=== PATIENT | male | born 1975 | race Hispanic/Latino ===

== ENCOUNTER 2018-10-23 13:27 | Emergency (ER) | payer OTHER ==
[2018-10-23 14:09] LABS: #Eosinphils 0.2 thou/uL (0.0-0.7); #Lymphocytes 2.5 thou/uL (1.20-3.40); #Monocytes 0.6 thou/uL (0.11-0.59); #Neutrophils 4.6 thou/uL (1.40-6.50); %Basophils 0.4 % (0.0-1.0); %Eosinophils 2.3 % (0.0-10.0); %Lymphocytes 31.7 % (21.0-51.0); %Monocytes 7.6 % (0.0-10.0); Hemoglobin 11.3 g/dL (14.0-18.0); Mean Corpuscular HGB CONC 33.5 g/dL (32.0-36.0); Mean Corpuscular Hemoglobin 29.3 pg (27.0-31.0); Mean Corpuscular Volume 87.4 fL (78.0-98.0); Mean Platelet Volume 6.9 fL (7.4-10.4); Platelet Count 290 thou/uL (130-400); RBC Distribution Width 12.2 % (11.5-14.5); Red Blood Cell (RBC) Count 3.86 mill/uL (4.70-6.10)
[2018-10-23 14:31] LABS: ALT (SGPT) 11 U/L (8-55); AST (SGOT) 14 U/L (5-34); Albumin 3.8 g/dL (3.5-5.0); Alkaline Phosphatase 113 U/L (40-150); Anion Gap 12 mmol/L (10-20); BUN (Urea Nitrogen) 28 mg/dL (8.9-20.6); Bilirubin, Total 0.2 mg/dL (0.2-1.2); CK (CPK) 105 U/L (30-200); Calc. Creatinine Clearance 0 mL/min (70-130); Calcium 9.1 mg/dL (7.8-10.44); Carbon Dioxide 23 mmol/L (22-29); Chloride 106 mmol/L (98-107); Estimated GFR-MDRD 45; Globulin 2.8 g/dL (2.4-3.5); Glucose 189 mg/dL (70-105); Potassium 5.3 mmol/L (3.5-5.1); Protein, Total 6.6 g/dL (6.0-8.3); Sodium 136 mmol/L (136-145)
== END 2018-10-23 15:03 | disposition home or self-care (01) ==
LOC: ERS 13:27
DX: E87.5 Hyperkalemia (principal); N17.9 Acute kidney failure, unspecified; E11.9 Type 2 diabetes mellitus without complications; I10 Essential (primary) hypertension; Z79.899 Other long term (current) drug therapy; Z79.4 Long term (current) use of insulin
CPT/HCPCS: 36415; 80053; 82550; 84484; 85025; 93005

== ENCOUNTER 2023-03-14 18:13 | Inpatient (IN) | payer OTHER ==
[2023-03-14] MEDS ORDERED: Acetaminophen 650 MG Suppository PR PRN (20:40)
[2023-03-14] MEDS ORDERED: Ondansetron ODT 4 MG TAB PO PRN (20:40)
[2023-03-14] MEDS ORDERED: Ondansetron PF 4 MG/2 ML Vial IVP PRN (20:40)
[2023-03-14] MEDS ORDERED: Dextrose 50% Abboject 50 ML SYRINGE SLOW IVP PRN (20:42)
[2023-03-14] MEDS ORDERED: Glucagon 1 MG/ML KIT IM PRN (20:42)
[2023-03-14] MEDS ORDERED: HumaLOG 300 UNITS/3 ML VIAL SC PRN ×2 (20:42)
[2023-03-14] MEDS ORDERED: Dextrose 5% in Water 1,000 ML IV PRN (20:42)
[2023-03-14] MEDS ORDERED: Sodium Chloride 0.9% 500 ML IV SCH (21:00)
[2023-03-14] MEDS: Sodium Chloride 0.9% 1,000 ML IV SCH (21:25)
[2023-03-14] MEDS: metroNIDAZOLE 500 MG in Premix 1 BAG IVPB SCH (21:25)
[2023-03-14] MEDS ORDERED: cloNIDine 0.1 MG TAB PO PRN (21:41)
[2023-03-14] MEDS ORDERED: hydrALAZINE 25 MG TAB PO SCH (22:00)
[2023-03-14] MEDS ORDERED: Carvedilol 25 MG TAB PO SCH (22:00)
[2023-03-14] MEDS: Acetaminophen 325 MG TAB PO PRN (22:02)
[2023-03-14 22:16] VITALS: BMI 29.1
[2023-03-14] MEDS ORDERED: Vancomycin HCl 750 MG in Sodium Chloride 0.9% 250 ML 250 ML IVPB SCH (23:45)
[2023-03-14] MEDS: Morphine 2 MG/ML VIAL SLOW IVP PRN (23:58)
[2023-03-15] MEDS ORDERED: Vancomycin (BATCH) 1.25 GM in Premix 1 BAG IVPB SCH (01:00)
[2023-03-15] MEDS: Sodium Chloride 0.9% 1,000 ML IV SCH (04:34)
[2023-03-15] MEDS: metroNIDAZOLE 500 MG in Premix 1 BAG IVPB SCH ×3 (04:35→21:20)
[2023-03-15 05:52] LABS: #Eosinphils 0.1 thou/uL (0.0-0.7); #Monocytes 0.8 thou/uL (0.11-0.59); #Neutrophils 5.6 thou/uL (1.40-6.50); %Basophils 0.3 % (0.0-1.0); %Eosinophils 1.2 % (0.0-10.0); %Lymphocytes 24.9 % (21.0-51.0); %Monocytes 8.6 % (0.0-10.0); %Neutrophils 64.7 % (42.0-75.0); Hematocrit 25.2 % (42.0-52.0); Hemoglobin 8.2 g/dL (14.0-18.0); Mean Corpuscular HGB CONC 32.5 g/dL (32.0-36.0); Mean Corpuscular Hemoglobin 28.4 pg (27.0-31.0); Mean Corpuscular Volume 87.2 fl (78.0-98.0); Mean Platelet Volume 8.9 fL (7.4-10.4); Platelet Count 448 10x3/uL (130-400); Red Blood Cell (RBC) Count 2.89 mill/uL (4.70-6.10); White Blood Cell (WBC) Count 8.7 10x3/uL (4.8-10.8)
[2023-03-15 05:56] LABS: Hemoglobin A1c 7.9 % (4.0-6.0)
[2023-03-15 06:12] LABS: Anion Gap 10 mmol/L (10-20); BUN (Urea Nitrogen) 53 mg/dL (8.9-20.6); Calc. Creatinine Clearance 28 mL/min (70-130); Calcium 8.7 mg/dL (7.8-10.44); Carbon Dioxide 21 mmol/L (22-29); Chloride 106 mmol/L (98-107); Estimated GFR 17; Glucose 121 mg/dL (70-105); Potassium 4.4 mmol/L (3.5-5.1); Sodium 133 mmol/L (136-145)
[2023-03-15] MEDS: hydrALAZINE 25 MG TAB PO SCH ×3 (08:59→21:21)
[2023-03-15] MEDS: Carvedilol 25 MG TAB PO SCH ×2 (08:59→16:42)
[2023-03-15] MEDS: Acetaminophen 325 MG TAB PO PRN ×2 (13:04→23:58)
[2023-03-15] MEDS ORDERED: Vancomycin Dose by Levels Sliding Scale (Wt 71-99) FS SCH (13:30)
[2023-03-15 13:58] LABS: Vancomycin, Random 19.9 ug/mL (See Comment)
[2023-03-15] MEDS ORDERED: Lidocaine 1% (PF) 30 ML VIAL ONE (15:03)
[2023-03-15] MEDS ORDERED: Midazolam HCl 2 mg/2 ml Vial ONE (15:03)
[2023-03-15] MEDS ORDERED: PROPOFOL 20 ML ONE (15:10)
[2023-03-15] MEDS ORDERED: Lidocaine 1% PF 5 ML VIAL ONE ×2 (15:10→15:17)
[2023-03-15] MEDS ORDERED: Ondansetron PF 4 MG/2 ML Vial ONE ×2 (15:10→15:17)
[2023-03-15] MEDS ORDERED: fentaNYL 50 mcg/mL 1 mL Vial ONE (15:15)
[2023-03-15] MEDS ORDERED: PROPOFOL 200 MG/20 ML VIAL ONE (15:17)
[2023-03-15] MEDS ORDERED: PHENYLEPHRINE-NS 100 MCG/ML 10 ML SYRINGE ONE ×2 (15:17→15:27)
[2023-03-15] MEDS ORDERED: HYDROmorphone 2 MG/ML VIAL SLOW IVP PRN (15:42)
[2023-03-15] MEDS ORDERED: Promethazine HCl 25 MG/ML VIAL IM PRN (15:42)
[2023-03-15] MEDS ORDERED: Morphine Sulfate 2 MG/ML SYRINGE SLOW IVP PRN (15:42)
[2023-03-15] MEDS ORDERED: Meperidine HCl/PF 25 MG/ML VIAL SLOW IVP PRN (15:42)
[2023-03-15] MEDS ORDERED: Ondansetron HCl/PF 4 MG/2 ML Vial IVP PRN (15:42)
[2023-03-15 17:44] LABS: HBSAg Index 0.63 S/CO (0-0.99); HIV (1/2) Antibody/Antigen Non-Reactive (NonReactive); HIV 1/2 INDEX 0.21 S/CO (<1.00); Hep B Surf Ag Non-Reactive S/CO (NonReactive); Hep C IgG Ab Non-Reactive S/CO (NonReactive); Hep C Index 0.09 S/CO (0-0.79)
[2023-03-15] MEDS ORDERED: Vancomycin HCl 500 MG in Sodium Chloride 0.9% 100 ML IVPB SCH (18:00)
[2023-03-15] MEDS: Calcitriol 0.25 MCG CAP PO SCH (18:37)
[2023-03-15] MEDS: Atorvastatin Calcium 40 MG TAB PO SCH (21:21)
[2023-03-15] MEDS: Calcium Carbonate 600 MG + Vit D TAB PO SCH (21:21)
[2023-03-15] MEDS: Morphine 2 MG/ML VIAL SLOW IVP PRN (21:35)
[2023-03-15] MEDS: Cefepime 2 GM in Sodium Chloride 0.9% 100 ML IVPB SCH (23:55)
[2023-03-16] MEDS ORDERED: Vancomycin HCl 750 MG in Sodium Chloride 0.9% 250 ML 250 ML IVPB SCH (02:00)
[2023-03-16] MEDS: metroNIDAZOLE 500 MG in Premix 1 BAG IVPB SCH ×3 (04:15→20:25)
[2023-03-16 06:51] LABS: #Eosinphils 0.1 thou/uL (0.0-0.7); #Monocytes 0.8 thou/uL (0.11-0.59); #Neutrophils 5.4 thou/uL (1.40-6.50); %Basophils 0.5 % (0.0-1.0); %Eosinophils 1.7 % (0.0-10.0); %Lymphocytes 19.3 % (21.0-51.0); %Monocytes 10.2 % (0.0-10.0); %Neutrophils 67.8 % (42.0-75.0); Hematocrit 25.9 % (42.0-52.0); Hemoglobin 8.3 g/dL (14.0-18.0); Mean Corpuscular Hemoglobin 28.1 pg (27.0-31.0); Mean Corpuscular Volume 87.8 fl (78.0-98.0); Mean Platelet Volume 8.6 fL (7.4-10.4); Platelet Count 444 10x3/uL (130-400); RBC Distribution Width 12.2 % (11.5-14.5); Red Blood Cell (RBC) Count 2.95 mill/uL (4.70-6.10)
[2023-03-16 07:18] LABS: ALT (SGPT) 9 U/L (8-55); AST (SGOT) 17 U/L (5-34); Albumin 2.7 g/dL (3.5-5.0); Alkaline Phosphatase 134 U/L (40-110); Anion Gap 9 mmol/L (10-20); BUN (Urea Nitrogen) 51 mg/dL (8.9-20.6); Bilirubin, Total Less than 0.2 mg/dL (0.2-1.2); Calc. Creatinine Clearance 28 mL/min (70-130); Calcium 8.6 mg/dL (7.8-10.44); Carbon Dioxide 23 mmol/L (22-29); Chloride 110 mmol/L (98-107); Estimated GFR 16; Globulin 3.8 g/dL (2.4-3.5); Glucose 128 mg/dL (70-105); Potassium 5.2 mmol/L (3.5-5.1); Protein, Total 6.5 g/dL (6.0-8.3); Sodium 137 mmol/L (136-145)
[2023-03-16] MEDS: hydrALAZINE 25 MG TAB PO SCH ×3 (08:23→20:24)
[2023-03-16] MEDS: Morphine 2 MG/ML VIAL SLOW IVP PRN ×2 (08:23→17:48)
[2023-03-16] MEDS: Calcium Carbonate 600 MG + Vit D TAB PO SCH ×2 (08:23→20:25)
[2023-03-16] MEDS: Carvedilol 25 MG TAB PO SCH ×2 (08:23→17:43)
[2023-03-16] MEDS ORDERED: Dextrose 50% Abboject 50 ML SYRINGE SLOW IVP SCH (08:45)
[2023-03-16] MEDS ORDERED: Insulin Regular 300 UNITS/3 ML VIAL IVP SCH (08:45)
[2023-03-16] MEDS ORDERED: Furosemide 40 MG TAB PO SCH (09:00)
[2023-03-16] MEDS: Sodium Chloride 0.9% 1,000 ML IV SCH ×3 (10:17→20:26)
[2023-03-16] MEDS: Acetaminophen 325 MG TAB PO PRN (14:48)
[2023-03-16 18:15] LABS: Vancomycin, Random 18.4 ug/mL (See Comment)
[2023-03-16] MEDS ORDERED: Vancomycin HCl 500 MG in Sodium Chloride 0.9% 100 ML IVPB SCH (18:30)
[2023-03-16] MEDS: Atorvastatin Calcium 40 MG TAB PO SCH (20:24)
[2023-03-16] MEDS: Minocycline HCl 50 MG CAP PO SCH (20:24)
[2023-03-16] MEDS: DULoxetine 60 MG CAP PO SCH (20:25)
[2023-03-17] MEDS: Cefepime 2 GM in Sodium Chloride 0.9% 100 ML IVPB SCH (00:49)
[2023-03-17] MEDS: Morphine 2 MG/ML VIAL SLOW IVP PRN ×3 (00:53→20:10)
[2023-03-17] MEDS: metroNIDAZOLE 500 MG in Premix 1 BAG IVPB SCH ×3 (04:29→20:07)
[2023-03-17 06:51] LABS: #Eosinphils 0.2 thou/uL (0.0-0.7); #Monocytes 0.8 thou/uL (0.11-0.59); #Neutrophils 7.6 thou/uL (1.40-6.50); %Basophils 0.4 % (0.0-1.0); %Eosinophils 1.6 % (0.0-10.0); %Lymphocytes 17.2 % (21.0-51.0); %Monocytes 7.8 % (0.0-10.0); %Neutrophils 72.6 % (42.0-75.0); Hematocrit 28.3 % (42.0-52.0); Hemoglobin 9.2 g/dL (14.0-18.0); Mean Corpuscular HGB CONC 32.5 g/dL (32.0-36.0); Mean Corpuscular Hemoglobin 28.7 pg (27.0-31.0); Mean Corpuscular Volume 88.2 fl (78.0-98.0); Mean Platelet Volume 8.7 fL (7.4-10.4); Platelet Count 524 10x3/uL (130-400); RBC Distribution Width 12.3 % (11.5-14.5); Red Blood Cell (RBC) Count 3.21 mill/uL (4.70-6.10); White Blood Cell (WBC) Count 10.5 10x3/uL (4.8-10.8)
[2023-03-17 07:15] LABS: Anion Gap 15 mmol/L (10-20); BUN (Urea Nitrogen) 49 mg/dL (8.9-20.6); Calc. Creatinine Clearance 30 mL/min (70-130); Calcium 9.3 mg/dL (7.8-10.44); Carbon Dioxide 20 mmol/L (22-29); Chloride 105 mmol/L (98-107); Estimated GFR 17; Glucose 147 mg/dL (70-105); Potassium 4.8 mmol/L (3.5-5.1); Sodium 135 mmol/L (136-145)
[2023-03-17] MEDS: hydrALAZINE 25 MG TAB PO SCH ×3 (09:15→20:08)
[2023-03-17] MEDS: Carvedilol 25 MG TAB PO SCH ×2 (09:15→17:32)
[2023-03-17] MEDS: Calcium Carbonate 600 MG + Vit D TAB PO SCH ×2 (09:15→20:07)
[2023-03-17] MEDS: Sodium Chloride 0.9% 1,000 ML IV SCH ×3 (09:15→14:02)
[2023-03-17] MEDS: Minocycline HCl 50 MG CAP PO SCH ×2 (09:16→20:10)
[2023-03-17] MEDS: Calcitriol 0.25 MCG CAP PO SCH (17:32)
[2023-03-17] MEDS ORDERED: Calcitriol 0.25 MCG CAP PO SCH (18:00)
[2023-03-17 18:18] LABS: Vancomycin, Random 17.7 ug/mL (See Comment)
[2023-03-17] MEDS: DULoxetine 60 MG CAP PO SCH (20:07)
[2023-03-17] MEDS: Atorvastatin Calcium 40 MG TAB PO SCH (20:08)
[2023-03-17] MEDS ORDERED: Vancomycin HCl 500 MG in Sodium Chloride 0.9% 100 ML IVPB SCH (20:15)
[2023-03-18] MEDS: Cefepime 2 GM in Sodium Chloride 0.9% 100 ML IVPB SCH (00:03)
[2023-03-18] MEDS: Sodium Chloride 0.9% 1,000 ML IV SCH ×2 (01:50→08:27)
[2023-03-18] MEDS: Morphine 2 MG/ML VIAL SLOW IVP PRN ×2 (02:07→08:29)
[2023-03-18] MEDS ORDERED: Labetalol HCl 100 MG/20 ML VIAL SLOW IVP SCH (02:30)
[2023-03-18] MEDS ORDERED: hydrALAZINE 20 MG/ML VIAL SLOW IVP SCH (05:15)
[2023-03-18] MEDS: metroNIDAZOLE 500 MG in Premix 1 BAG IVPB SCH ×3 (05:18→20:18)
[2023-03-18 07:03] LABS: Anion Gap 12 mmol/L (10-20); BUN (Urea Nitrogen) 44 mg/dL (8.9-20.6); Calc. Creatinine Clearance 35 mL/min (70-130); Carbon Dioxide 19 mmol/L (22-29); Chloride 109 mmol/L (98-107); Estimated GFR 21; Glucose 110 mg/dL (70-105); Potassium 5.1 mmol/L (3.5-5.1); Sodium 135 mmol/L (136-145)
[2023-03-18] MEDS: Carvedilol 25 MG TAB PO SCH ×2 (08:26→16:56)
[2023-03-18] MEDS: hydrALAZINE 25 MG TAB PO SCH ×3 (08:26→20:17)
[2023-03-18] MEDS: Calcium Carbonate 600 MG + Vit D TAB PO SCH ×2 (08:26→20:17)
[2023-03-18] MEDS: Minocycline HCl 50 MG CAP PO SCH ×2 (08:45→20:17)
[2023-03-18] MEDS ORDERED: Aspirin 81 mg Enteric Coated Tablet PO SCH (09:00)
[2023-03-18 19:34] VITALS: BP 156/92; TEMP 97.7
[2023-03-18] MEDS: DULoxetine 60 MG CAP PO SCH (20:17)
[2023-03-18] MEDS: Atorvastatin Calcium 40 MG TAB PO SCH (20:17)
[2023-03-18] MEDS ORDERED: Vancomycin HCl 500 MG in Sodium Chloride 0.9% 100 ML IVPB SCH (20:45)
[2023-03-18] MEDS ORDERED: Cefepime 1 GM in Sodium Chloride 0.9% 100 ML IVPB SCH (23:59)
== END 2023-03-18 21:58 | DRG 617 ==
LOC: T4-A 18:19 → EEVIPCON 18:19
PROVIDERS: ADMIT Hospitalist; ATTEND Internal Medicine
PROC: 0Y6S0Z1 Detachment at Left 2nd Toe, High, Open Approach (ICD-10-PCS; principal; 2023-03-15)
DX: E11.69 Type 2 diabetes mellitus with other specified complication (principal); E11.52 Type 2 diabetes mellitus with diabetic peripheral angiopathy with gangrene; M00.9 Pyogenic arthritis, unspecified; M86.8X7 Other osteomyelitis, ankle and foot; I96 Gangrene, not elsewhere classified; E11.22 Type 2 diabetes mellitus with diabetic chronic kidney disease; I12.9 Hypertensive chronic kidney disease with stage 1 through stage 4 chronic kidney disease, or unspecified chronic kidney disease; E87.5 Hyperkalemia; N17.9 Acute kidney failure, unspecified; N18.4 Chronic kidney disease, stage 4 (severe); Z79.82 Long term (current) use of aspirin; Z79.899 Other long term (current) drug therapy; Z79.4 Long term (current) use of insulin; Z89.511 Acquired absence of right leg below knee; Z90.49 Acquired absence of other specified parts of digestive tract
CPT/HCPCS: 36415; 36416; 80048; 80053; 80202; 82550; 83036; 83605; 85025; 86140; 87040; 88305; 88311; 97139; J0360; J0692; J1815; J2001; J2250; J2272; J2405; J2704; J3010; J3370; J3490; J7030; J7050; J7999